=== PATIENT | female | born 1965 | race African-American/Black ===

== ENCOUNTER 2017-02-03 12:13 | Emergency (ER) | payer OTHER ==
[~2017-02-03] VITALS: Ht 160 cm; Wt 49.9 kg
[~2017-02-03 12:13] MED LIST: IBUPROFEN 800800 M1 GT; IBUPROFEN 800800 M1 PO; NOHOMEMEDICATIONS; NORCO 5-325 TA1 EACH PO; PENICILLIN VK500 MG PO; ULTRAM 50MG TAB50 MG PO
[2017-02-03] MEDS ORDERED: NORVASC10 MG PO (12:35)
[2017-02-03] MEDS ORDERED: LISINOPRIL-HCT1 EAC2 PO (12:35)
[2017-02-03] MEDS ORDERED: PENICILLIN V P500 MG PO (12:41)
[2017-02-03] MEDS ORDERED: MOBIC15 MG PO (12:41)
[2017-02-03 14:26] VITALS: BP 160/98
== END 2017-02-03 14:27 | disposition home or self-care (01) ==
LOC: ER 12:13
DX: K02.9 Dental caries, unspecified (principal); I10 Essential (primary) hypertension; J44.9 Chronic obstructive pulmonary disease, unspecified; Z90.49 Acquired absence of other specified parts of digestive tract; F43.10 Post-traumatic stress disorder, unspecified; F17.210 Nicotine dependence, cigarettes, uncomplicated